=== PATIENT | male | born 1955 | race Caucasian/White ===

== ENCOUNTER → 2018-10-13 | Outpatient (CLI) | payer MEDICARE, OTHER | LOC: SL 20:23 | PROVIDERS: ATTEND Nurse Practitioner Family | DX: G47.33 Obstructive sleep apnea (adult) (pediatric) (principal) ==

== ENCOUNTER → 2019-02-17 | Outpatient (CLI) | payer MEDICARE, OTHER ==
--- NOTE | 2019-02-19 15:12 | US ---
EXAM DESCRIPTION: Aorta: Ultrasound. CLINICAL HISTORY: SCREENING COMPARISON: None. TECHNIQUE: Transcutaneous scanning: Two-dimensional and Doppler modes. FINDINGS: Abdominal aorta diameter - Proximal: Not well seen due to intestinal gas. Mid: 3.1 x 2.1 cm. Distal: 2.2 x 2.0 cm. Common Iliac diameter - Right: 10.7 mm. Left: 9.6 mm. Other: No comments.. IMPRESSION: 3.1 cm abdominal aortic aneurysm in the mid aorta. [facility] Best Practice recommendations: Recommend follow-up every 3 years. Reference: J Am Puma Radiol 2013;10:[id number]. Electronically signed by: Tobin Mahoney MD 02/19/2019 3:11 PM CDT
== END ==
LOC: US 08:30
PROVIDERS: ATTEND Nurse Practitioner Family
DX: F17.200 Nicotine dependence, unspecified, uncomplicated (principal); I71.4 Abdominal aortic aneurysm, without rupture